=== PATIENT | female | born 1960 | race African-American/Black ===

== ENCOUNTER 2018-06-13 15:58 | Inpatient (IN) | payer MEDICARE, OTHER ==
[2018-06-13] MEDS: ACETAMINOPHEN 500 MG TAB PO ×2 (18:22→19:21)
[2018-06-13 19:03] LABS: ADD MAN DIFF? NO
[2018-06-13 19:10] LABS: BASOPHIL # 0.1 10^3/ul (0.0-0.1); BASOPHILS % 1.2 % (0.0-2.0); EOSINOPHILS # 0.1 10^3/ul (0.0-0.5); EOSINOPHILS % 1.1 % (0.0-7.0); HEMATOCRIT 42.4 % (37.0-47.0); HEMOGLOBIN 14.2 g/dl (12.0-16.0); LYMPHOCYTES % 48.7 % (15.0-51.0); MEAN CORPUSCULAR HEMOGLOBIN 30.2 pg (29.0-33.0); MEAN CORPUSCULAR HGB CONC 33.5 g/dl (32.0-37.0); MEAN CORPUSCULAR VOLUME 90.2 fl (82.0-101.0); MONOCYTE # 0.9 10^3/ul (0.3-0.9); MONOCYTES % 10.6 % (0.0-11.0); NEUTROPHIL # 3.1 10^3/ul (1.6-7.5); NEUTROPHILS % 38.3 % (39.0-77.0); PLATELET COUNT 271 10^3/UL (140-415); RED CELL DISTRIBUTION WIDTH 15.9 % (11.5-14.5)
[2018-06-13 19:10] LABS: WHITE BLOOD COUNT 8.2 10^3/ul (4.8-10.8)
[2018-06-13] MEDS: CEFEPIME 2GM/50 ML (PMX) 50 ML IVPB (19:21)
[2018-06-13] MEDS: SODIUM CHLORIDE 0.9% 1L BAG IV* (19:22)
[2018-06-13 19:29] LABS: INR 0.87; PROTIME 11.9 Sec (11.9-14.9); PT RATIO 0.9
[2018-06-13 19:30] LABS: PARTIAL THROMBOPLASTIN TIME 26.1 Sec (25.0-35.0)
[2018-06-13] MEDS ORDERED: ACETAMINOPHEN 325 MG TAB PO (19:30)
[2018-06-13] MEDS ORDERED: ONDANSETRON 4 MG INJ IV (19:30)
[2018-06-13 19:38] LABS: LACTIC ACID 1.4 mmol/L (0.5-2.0)
[2018-06-13 19:40] LABS: ALANINE AMINOTRANSFERASE 13 IU/L (13-69); ALBUMIN 4.7 g/dl (3.3-4.9); ALBUMIN/GLOBULIN RATIO 1.11; ALKALINE PHOSPHATASE 270 IU/L (42-121); AMYLASE 115 U/L (11-123); ANION GAP 18 (8-16); ASPARTATE AMINO TRANSFERASE 61 IU/L (15-46); BILIRUBIN,INDIRECT 0.2 mg/dl (0-1.1); BILIRUBIN,TOTAL 0.2 mg/dl (0.2-1.3); BLOOD UREA NITROGEN 17 mg/dl (7-20); CALCIUM 9.5 mg/dl (8.4-10.2); CARBON DIOXIDE 26 mmol/L (21-31); CHLORIDE 98 mmol/L (97-110); CREATININE 0.92 mg/dl (0.44-1.00); GLUCOSE 108 mg/dl (70-220); LIPASE 134 U/L (23-300); POTASSIUM 4.3 mmol/L (3.5-5.1); SODIUM 138 mmol/L (135-144); TOTAL PROTEIN 8.9 g/dl (6.1-8.1)
[2018-06-13 19:51] LABS: TROPONIN-I 0.024 ng/ml (0.000-0.120)
[2018-06-13 19:58] LABS: ADD UMIC NO; UR ASCORBIC ACID NEGATIVE (NEGATIVE); UR BILIRUBIN (Dip) NEGATIVE (NEGATIVE); UR BLOOD (Dip) NEGATIVE (NEGATIVE); UR CLARITY CLEAR (CLEAR); UR COLOR YELLOW (YELLOW); UR GLUCOSE (Dip) NEGATIVE (NEGATIVE); UR KETONES (Dip) NEGATIVE (NEGATIVE); UR LEUKOCYTE ESTERASE (Dip) NEGATIVE Leu/ul (NEGATIVE); UR NITRITE (Dip) NEGATIVE (NEGATIVE); UR SPECIFIC GRAVITY (Dip) 1.013 (1.003-1.030); UR TOTAL PROTEIN (Dip) NEGATIVE (NEGATIVE); UR UROBILINOGEN (Dip) NEGATIVE (NEGATIVE)
[2018-06-13] MEDS: ALBUTEROL 0.5% (NEB) 2.5 MG/0.5 ML AMP INH (20:12)
[2018-06-13] MEDS: IPRATROPIUM (NEB) 0.5 MG/2.5 ML AMP INH (20:12)
[2018-06-13] MEDS ORDERED: BISACODYL (EC) 5 MG TAB PO (20:30)
[2018-06-13] MEDS ORDERED: ONDANSETRON 4 MG TAB PO (20:30)
[2018-06-13] MEDS ORDERED: NAPROXEN 250 MG TAB PO (20:30)
[2018-06-13] MEDS: ENOXAPARIN 40 MG/0.4 ML SYG SC (20:30)
[2018-06-13] MEDS ORDERED: NACL 0.9% 3 ML SYG IV (20:30)
[2018-06-13] MEDS ORDERED: MAGNESIUM HYDROXIDE 30ML CUP PO (20:30)
[2018-06-13] MEDS ORDERED: ALBUTEROL 0.083% (NEB) 2.5 MG/3 ML AMP NEB (20:30)
[2018-06-13] MEDS ORDERED: VANCOMYCIN IV PER PHARMACY XX (20:30)
[2018-06-13] MEDS ORDERED: DOCUSATE SODIUM 100 MG CAP PO (20:30)
[2018-06-13] MEDS ORDERED: DIPHENHYDRAMINE 50 MG CAP PO (20:30)
[2018-06-13] MEDS: DIPHENHYDRAMINE 50 MG INJ IV (20:38)
[2018-06-13] MEDS: VANCOMYCIN 1 GM (PMX) 250 ML IVPB (20:38)
[2018-06-13] MEDS ORDERED: ACCU-CHEK XX (21:00)
[2018-06-13] MEDS: ALBUTEROL/IPRATROPIUM (NEB) 3 ML AMP HHN (21:00)
[2018-06-13] MEDS: SOD CHLORIDE 0.9% 100 ML (21:00)
[2018-06-13] MEDS: IOHEXOL 300MG/ML 150 ML BTL (21:00)
[2018-06-13] MEDS: metFORMIN 500 MG TAB PO ×2 (21:28→21:48)
[2018-06-13 21:39] LABS: ERYTHROCYTE SEDIMENTATION RATE 8 mm/Hr (0-30)
[2018-06-14] MEDS: FAMOTIDINE 20 MG TAB PO ×2 (00:05→08:50)
[2018-06-14] MEDS: ZOLPIDEM 5 MG TAB PO (00:06)
[2018-06-14] MEDS: SOD CHLORIDE 0.9% 1,000 ML IV ×2 (00:19→05:13)
[2018-06-14] MEDS: ACCU-CHEK XX ×3 (00:20→12:11)
[2018-06-14] MEDS: ALPRAZOLAM 0.25 MG TAB PO (00:55)
[2018-06-14] MEDS: ALBUTEROL/IPRATROPIUM (NEB) 3 ML AMP HHN ×4 (01:00→13:00)
[2018-06-14] MEDS: VANCOMYCIN 1 GM 250 ML IVPB (05:14)
[2018-06-14] MEDS: ACETAMINOPHEN 325 MG TAB PO (05:29)
[2018-06-14 07:51] LABS: ADD MAN DIFF? NO
[2018-06-14 07:56] LABS: BASOPHIL # 0.1 10^3/ul (0.0-0.1); BASOPHILS % 1.1 % (0.0-2.0); EOSINOPHILS # 0.1 10^3/ul (0.0-0.5); HEMATOCRIT 37.5 % (37.0-47.0); HEMOGLOBIN 12.3 g/dl (12.0-16.0); LYMPHOCYTES # 2.8 10^3/ul (0.8-2.9); LYMPHOCYTES % 44.9 % (15.0-51.0); MEAN CORPUSCULAR HEMOGLOBIN 29.1 pg (29.0-33.0); MEAN CORPUSCULAR HGB CONC 32.8 g/dl (32.0-37.0); MEAN CORPUSCULAR VOLUME 88.9 fl (82.0-101.0); MEAN PLATELET VOLUME 11.8 fl (7.4-10.4); MONOCYTE # 0.9 10^3/ul (0.3-0.9); MONOCYTES % 13.8 % (0.0-11.0); NEUTROPHIL # 2.4 10^3/ul (1.6-7.5); NEUTROPHILS % 38.9 % (39.0-77.0); NUCLEATED RED BLOOD CELLS% 0.3 /100WBC (0.0-0.0); PLATELET COUNT 243 10^3/UL (140-415); RED BLOOD COUNT 4.22 10^6/ul (4.20-5.40); RED CELL DISTRIBUTION WIDTH 16.1 % (11.5-14.5)
[2018-06-14 07:56] LABS: WHITE BLOOD COUNT 6.2 10^3/ul (4.8-10.8)
[2018-06-14 08:19] LABS: CREATINE KINASE 113 IU/L (23-200)
[2018-06-14 08:26] LABS: ANION GAP 15 (8-16); BLOOD UREA NITROGEN 15 mg/dl (7-20); CALCIUM 8.6 mg/dl (8.4-10.2); CARBON DIOXIDE 25 mmol/L (21-31); CHLORIDE 102 mmol/L (97-110); CREATININE 0.88 mg/dl (0.44-1.00); GLUCOSE 110 mg/dl (70-220); POTASSIUM 4.2 mmol/L (3.5-5.1); SODIUM 138 mmol/L (135-144)
[2018-06-14 08:30] LABS: CK INDEX 0.9; CK-MB 1.01 ng/ml (0.0-2.4); TROPONIN-I 0.019 ng/ml (0.000-0.120)
[2018-06-14 08:37] LABS: HEMOGLOBIN A1C 6.7 % (0-5.9)
[2018-06-14 08:46] LABS: FREE THYROXINE INDEX (Calc) 2.69 ug/ml (0.65-3.89); T3 UPTAKE 37.9 % (23.5-40.5); T4 (THYROXINE) 7.1 ug/dl (5.5-11.0)
[2018-06-14] MEDS: MULTIVITAMINS/MINERALS TAB PO (08:50)
[2018-06-14] MEDS: metFORMIN 500 MG TAB PO (08:50)
[2018-06-14] MEDS: LOSARTAN 25 MG TAB PO (08:52)
[2018-06-14] MEDS: predniSONE 20 MG TAB PO (08:53)
[2018-06-14] MEDS: ENOXAPARIN 40 MG/0.4 ML SYG SC (08:56)
[2018-06-14] MEDS ORDERED: NON-FORMULARY/PATIENT OWN MED (Multivitamin with Minerals (Multivitamins with Minerals) 1 PO (09:00)
[2018-06-14] MEDS ORDERED: TADALAFIL 20 MG PO (09:00)
[2018-06-14] MEDS: ESCITALOPRAM 10 MG TAB PO (09:00)
[2018-06-14] MEDS: CEFEPIME 2GM/50 ML (PMX) 50 ML IVPB (09:05)
[2018-06-14] MEDS: MAGNESIUM SULFATE 4 GM/100 ML 100 ML IVPB (11:02)
[2018-06-14] MEDS: TRIMETHOPRIM/SULFAMETHOX (DS) TAB PO (11:02)
[2018-06-14] MEDS: MUPIROCIN 2% 22 GM OINT TOP ×2 (11:02→12:19)
[2018-06-14] MEDS ORDERED: [UNRECOGNIZED DRUG - OTHER] XX (14:30)
[2018-06-14] MEDS ORDERED: TADALAFIL 20 MG XX (14:30)
== END 2018-06-14 15:15 | disposition home or self-care (01) | DRG 864 ==
LOC: E/R 15:58 → PP2 19:30
DX: R50.9 Fever, unspecified (principal); J45.31 Mild persistent asthma with (acute) exacerbation; I27.23 Pulmonary hypertension due to lung diseases and hypoxia; Z99.81 Dependence on supplemental oxygen; E11.9 Type 2 diabetes mellitus without complications; E83.42 Hypomagnesemia; D86.0 Sarcoidosis of lung; I10 Essential (primary) hypertension; R21 Rash and other nonspecific skin eruption; E78.5 Hyperlipidemia, unspecified; Z79.84 Long term (current) use of oral hypoglycemic drugs; L01.00 Impetigo, unspecified
CPT/HCPCS: 36415; 71045; 71260; 80048; 80053; 81003; 82150; 82550; 82553; 82962; 83036; 83605; 83690; 83735; 84436; 84479; 84484; 85025; 85378; 85610; 85651; 85730; 87040; 87086; 93005; 94644; 94664; 96374; 99285-25

== ENCOUNTER 2019-05-20 11:18 | Observation (INO) | payer MEDICARE, OTHER ==
[2019-05-20 12:02] LABS: ADD MAN DIFF? NO
[2019-05-20 12:08] LABS: ABNORMAL IP MESSAGE 1; BASOPHIL # 0.1 10^3/ul (0.0-0.1); BASOPHILS % 1.1 % (0.0-2.0); EOSINOPHILS # 0.1 10^3/ul (0.0-0.5); EOSINOPHILS % 0.8 % (0.0-7.0); HEMATOCRIT 35.3 % (37.0-47.0); HEMOGLOBIN 10.8 g/dl (12.0-16.0); LYMPHOCYTES # 1.9 10^3/ul (0.8-2.9); LYMPHOCYTES % 31.3 % (15.0-51.0); MEAN CORPUSCULAR HEMOGLOBIN 24.6 pg (29.0-33.0); MEAN CORPUSCULAR HGB CONC 30.6 g/dl (32.0-37.0); MEAN CORPUSCULAR VOLUME 80.4 fl (82.0-101.0); MONOCYTES % 15.7 % (0.0-11.0); NEUTROPHIL # 3.1 10^3/ul (1.6-7.5); NEUTROPHILS % 50.5 % (39.0-77.0); NUCLEATED RED BLOOD CELLS # 0.1 10^3/ul (0.0-0.0); NUCLEATED RED BLOOD CELLS% 1.9 /100WBC (0.0-0.0); PLATELET COUNT 163 10^3/UL (140-415); RED BLOOD COUNT 4.39 10^6/ul (4.20-5.40); RED CELL DISTRIBUTION WIDTH 24.9 % (11.5-14.5)
[2019-05-20 12:08] LABS: WHITE BLOOD COUNT 6.2 10^3/ul (4.8-10.8)
[2019-05-20 12:12] LABS: POSITIVE DIFF @See below
[2019-05-20 12:22] LABS: ALANINE AMINOTRANSFERASE 288 IU/L (13-69); ALBUMIN 3.9 g/dl (3.3-4.9); ALBUMIN/GLOBULIN RATIO 0.95; ALKALINE PHOSPHATASE 589 IU/L (42-121); ANION GAP 12 (5-13); ASPARTATE AMINO TRANSFERASE 267 IU/L (15-46); BILIRUBIN,INDIRECT 1.6 mg/dl (0-1.1); BILIRUBIN,TOTAL 2.2 mg/dl (0.2-1.3); BLOOD UREA NITROGEN 11 mg/dl (7-20); CALCIUM 9.2 mg/dl (8.4-10.2); CARBON DIOXIDE 36 mmol/L (21-31); CHLORIDE 89 mmol/L (97-110); CREATININE 1.13 mg/dl (0.44-1.00); Estimated GFR > 60 mL/min (>60); GLUCOSE 136 mg/dl (70-220); POTASSIUM 3.6 mmol/L (3.5-5.1); SODIUM 137 mmol/L (135-144)
[2019-05-20 12:24] LABS: MAGNESIUM 0.8 mg/dl (1.7-2.5)
[2019-05-20 12:25] LABS: PROTIME 15.3 Sec (11.9-14.9); PT RATIO 1.2
[2019-05-20 12:26] LABS: PARTIAL THROMBOPLASTIN TIME 31.5 Sec (23.0-35.0)
[2019-05-20 12:33] LABS: B-TYPE NATRIURETIC PEPTIDE 3070 PG/ML (0-125); D-DIMER 3367.84 ng/ml (<460); TROPONIN-I 0.033 ng/ml (0.000-0.120)
[2019-05-20] MEDS: MAGNESIUM SULFATE 2 GM/50 ML 50 ML IVPB ×2 (12:57→18:05)
[2019-05-20] MEDS: IODIXANOL LOCM 100 ML BTL (13:36)
[2019-05-20] MEDS: SOD CHLORIDE 0.9% 100 ML (13:36)
[2019-05-20] MEDS: FUROSEMIDE 20 MG INJ IV (14:10)
[2019-05-20] MEDS ORDERED: ALBUTEROL 0.083% (NEB) 2.5 MG/3 ML AMP NEB (15:00)
[2019-05-20] MEDS ORDERED: ACETAMINOPHEN 325 MG TAB PO (15:00)
[2019-05-20] MEDS ORDERED: NACL 0.9% 3 ML SYG IV (15:00)
[2019-05-20] MEDS ORDERED: ONDANSETRON 4 MG INJ IV (15:00)
[2019-05-20] MEDS ORDERED: DIPHENHYDRAMINE 50 MG CAP PO (15:00)
[2019-05-20] MEDS ORDERED: DOCUSATE SODIUM 100 MG CAP PO (15:00)
[2019-05-20] MEDS ORDERED: MAGNESIUM HYDROXIDE 30ML CUP PO (15:00)
[2019-05-20] MEDS ORDERED: GLUCAGON 1 MG INJ IM (15:30)
[2019-05-20] MEDS ORDERED: GLUCOSE GEL 15 GRAM TUBE PO ×2 (15:30)
[2019-05-20] MEDS ORDERED: DEXTROSE 50% 50 ML SYRINGE IV ×2 (15:30)
[2019-05-20] MEDS ORDERED: GLUCOSE GEL 15 GRAM TUBE BUCCAL (15:30)
[2019-05-20 15:39] LABS: HEMOGLOBIN A1C 6.7 % (0-5.9)
[2019-05-20] MEDS: POTASSIUM CHLORIDE (SR) 20 MEQ TAB PO (18:05)
[2019-05-20] MEDS: ALPRAZOLAM 0.5 MG TAB PO (22:38)
[2019-05-20] MEDS: ZOLPIDEM 5 MG TAB PO (22:38)
[2019-05-20] MEDS: INSULIN ASPART [NOVOLOG] 3 ML PEN SC ×2 (22:40→22:42)
[2019-05-21 05:30] LABS: ADD MAN DIFF? NO
[2019-05-21 06:21] LABS: ALANINE AMINOTRANSFERASE 218 IU/L (13-69); ALBUMIN 3.1 g/dl (3.3-4.9); ALBUMIN/GLOBULIN RATIO 0.88; ALKALINE PHOSPHATASE 502 IU/L (42-121); ANION GAP 7 (5-13); ASPARTATE AMINO TRANSFERASE 160 IU/L (15-46); BLOOD UREA NITROGEN 13 mg/dl (7-20); CALCIUM 8.9 mg/dl (8.4-10.2); CARBON DIOXIDE 38 mmol/L (21-31); CHLORIDE 94 mmol/L (97-110); CREATININE 1.24 mg/dl (0.44-1.00); Estimated GFR 54 mL/min (>60); GLUCOSE 123 mg/dl (70-220); MAGNESIUM 1.6 mg/dl (1.7-2.5); POTASSIUM 3.5 mmol/L (3.5-5.1); SODIUM 139 mmol/L (135-144); TOTAL PROTEIN 6.6 g/dl (6.1-8.1)
[2019-05-21] MEDS: [UNRECOGNIZED DRUG - OTHER] XX (06:30)
[2019-05-21] MEDS: PANTOPRAZOLE (EC) 40 MG TAB PO (06:49)
[2019-05-21 06:56] LABS: ABNORMAL IP MESSAGE 1; BASOPHIL # 0.1 10^3/ul (0.0-0.1); BASOPHILS % 1.5 % (0.0-2.0); EOSINOPHILS # 0.2 10^3/ul (0.0-0.5); EOSINOPHILS % 2.8 % (0.0-7.0); HEMATOCRIT 32.9 % (37.0-47.0); HEMOGLOBIN 10.1 g/dl (12.0-16.0); LYMPHOCYTES # 2.6 10^3/ul (0.8-2.9); LYMPHOCYTES % 38.6 % (15.0-51.0); MEAN CORPUSCULAR HGB CONC 30.7 g/dl (32.0-37.0); MEAN CORPUSCULAR VOLUME 81.4 fl (82.0-101.0); MONOCYTES % 15.3 % (0.0-11.0); NEUTROPHIL # 2.8 10^3/ul (1.6-7.5); NEUTROPHILS % 41.7 % (39.0-77.0); NUCLEATED RED BLOOD CELLS # 0.1 10^3/ul (0.0-0.0); NUCLEATED RED BLOOD CELLS% 1.2 /100WBC (0.0-0.0); PLATELET COUNT 165 10^3/UL (140-415); RED BLOOD COUNT 4.04 10^6/ul (4.20-5.40); RED CELL DISTRIBUTION WIDTH 25.2 % (11.5-14.5)
[2019-05-21 06:56] LABS: WHITE BLOOD COUNT 6.8 10^3/ul (4.8-10.8)
[2019-05-21 06:58] LABS: POSITIVE DIFF @See below
[2019-05-21] MEDS: INSULIN ASPART [NOVOLOG] 3 ML PEN SC ×4 (08:00→20:24)
[2019-05-21] MEDS: ESCITALOPRAM 10 MG TAB PO (08:49)
[2019-05-21] MEDS: MAGNESIUM OXIDE 400 MG TAB PO (08:49)
[2019-05-21] MEDS: ENOXAPARIN 30 MG/0.3 ML SYG SC (08:49)
[2019-05-21] MEDS: POTASSIUM CHLORIDE (SR) 20 MEQ TAB PO (08:49)
[2019-05-21] MEDS ORDERED: TADALAFIL 20 MG PO (09:00)
[2019-05-21] MEDS: SILDENAFIL 20 MG TAB PO ×2 (13:38→20:25)
[2019-05-22] MEDS: ALPRAZOLAM 0.5 MG TAB PO (00:45)
[2019-05-22] MEDS: ZOLPIDEM 5 MG TAB PO (00:45)
[2019-05-22 05:24] LABS: ADD MAN DIFF? NO
[2019-05-22 05:28] LABS: ABNORMAL IP MESSAGE 1; BASOPHIL # 0.1 10^3/ul (0.0-0.1); BASOPHILS % 1.2 % (0.0-2.0); EOSINOPHILS # 0.2 10^3/ul (0.0-0.5); EOSINOPHILS % 3.4 % (0.0-7.0); HEMATOCRIT 33.2 % (37.0-47.0); HEMOGLOBIN 10.2 g/dl (12.0-16.0); LYMPHOCYTES # 2.1 10^3/ul (0.8-2.9); LYMPHOCYTES % 37.4 % (15.0-51.0); MEAN CORPUSCULAR HEMOGLOBIN 24.9 pg (29.0-33.0); MEAN CORPUSCULAR HGB CONC 30.7 g/dl (32.0-37.0); MONOCYTE # 0.9 10^3/ul (0.3-0.9); MONOCYTES % 16.2 % (0.0-11.0); NEUTROPHIL # 2.3 10^3/ul (1.6-7.5); NEUTROPHILS % 41.6 % (39.0-77.0); NUCLEATED RED BLOOD CELLS # 0.1 10^3/ul (0.0-0.0); NUCLEATED RED BLOOD CELLS% 1.8 /100WBC (0.0-0.0); PLATELET COUNT 165 10^3/UL (140-415); RED CELL DISTRIBUTION WIDTH 25.2 % (11.5-14.5)
[2019-05-22 05:28] LABS: WHITE BLOOD COUNT 5.6 10^3/ul (4.8-10.8)
[2019-05-22 05:52] LABS: ALANINE AMINOTRANSFERASE 168 IU/L (13-69); ALBUMIN/GLOBULIN RATIO 0.78; ALKALINE PHOSPHATASE 468 IU/L (42-121); ANION GAP 6 (5-13); ASPARTATE AMINO TRANSFERASE 118 IU/L (15-46); BILIRUBIN,INDIRECT 0.8 mg/dl (0-1.1); BILIRUBIN,TOTAL 0.8 mg/dl (0.2-1.3); BLOOD UREA NITROGEN 10 mg/dl (7-20); CALCIUM 8.9 mg/dl (8.4-10.2); CARBON DIOXIDE 39 mmol/L (21-31); CHLORIDE 96 mmol/L (97-110); CREATININE 0.96 mg/dl (0.44-1.00); Estimated GFR > 60 mL/min (>60); GLUCOSE 124 mg/dl (70-220); MAGNESIUM 1.5 mg/dl (1.7-2.5); POTASSIUM 4.1 mmol/L (3.5-5.1); SODIUM 141 mmol/L (135-144); TOTAL PROTEIN 6.8 g/dl (6.1-8.1)
[2019-05-22 05:57] LABS: POSITIVE DIFF @See below
[2019-05-22] MEDS: PANTOPRAZOLE (EC) 40 MG TAB PO (06:37)
[2019-05-22] MEDS: INSULIN ASPART [NOVOLOG] 3 ML PEN SC ×3 (08:00→17:08)
[2019-05-22] MEDS: ENOXAPARIN 30 MG/0.3 ML SYG SC (09:00)
[2019-05-22] MEDS: MAGNESIUM SULFATE 2 GM/50 ML 50 ML IVPB (09:14)
[2019-05-22] MEDS: ESCITALOPRAM 10 MG TAB PO (09:14)
[2019-05-22] MEDS: SILDENAFIL 20 MG TAB PO ×2 (09:17→12:06)
[2019-05-22] MEDS: MAGNESIUM SULFATE 4 GM/100 ML 100 ML IVPB (12:07)
== END 2019-05-22 17:45 | disposition home or self-care (01) ==
LOC: E/R 11:18 → 6WM 16:21
DX: I27.20 Pulmonary hypertension, unspecified (principal); I11.0 Hypertensive heart disease with heart failure; I50.9 Heart failure, unspecified; R74.0 Nonspecific elevation of levels of transaminase and lactic acid dehydrogenase [LDH]; N17.9 Acute kidney failure, unspecified; E83.42 Hypomagnesemia; E78.00 Pure hypercholesterolemia, unspecified; E78.5 Hyperlipidemia, unspecified; D64.9 Anemia, unspecified; I25.10 Atherosclerotic heart disease of native coronary artery without angina pectoris; J45.909 Unspecified asthma, uncomplicated; D86.0 Sarcoidosis of lung; F32.9 Major depressive disorder, single episode, unspecified
CPT/HCPCS: 36415; 71045; 71275; 76705; 80053; 82962; 83036; 83735; 83880; 84443; 84484; 85025; 85378; 85610; 85730; 93005; 93306; 93970; 96365; 96375; 97110; 97161; 97165; 97535; 99285-25; G0378